=== PATIENT | female | born 1950 | race Caucasian/White ===

== ENCOUNTER 2016-12-31 15:40 | Emergency (ER) | payer MEDICARE ==
[~2016-12-31] VITALS: Ht 152.4 cm; Wt 95.3 kg
[2016-12-31] MEDS ORDERED: CAPT1TAB18 PO (15:51)
[2016-12-31] MEDS ORDERED: LOVA40TA PO (15:51)
[2016-12-31] MEDS ORDERED: B121000T PO (15:51)
[2016-12-31] MEDS ORDERED: SYNT75TA PO (15:51)
[2016-12-31] MEDS ORDERED: AMLO5TAB2 PO (15:51)
[2016-12-31] MEDS ORDERED: CHEW500C2 PO (15:51)
[2016-12-31] MEDS ORDERED: IBUPROFEN 800 MG TAB PO ONE (16:15)
[2016-12-31] MEDS ORDERED: amLODIPine 5 MG TAB PO ONE (16:30)
[2016-12-31] MEDS ORDERED: METOPROLOL TART 25 MG TABLET PO ONE (16:30)
[2016-12-31 16:51] VITALS: BP 162/98
--- NOTE | 2017-01-01 06:29 | REP ---
RIGHT LOWER EXTREMITY DUPLEX VEINS: HISTORY: Pain. There are no filling defects in the deep venous system. The deep venous system is patent. IMPRESSION: There is no deep venous thrombosis. Signed by Juan Jose Ibarra MD 01/01/2017 08:24 A
--- NOTE | 2017-01-04 10:11 | REP ---
RIGHT KNEE SERIES: Five views. HISTORY: Right lateral and posterior knee pain. FINDINGS: By views of the right knee demonstrate moderate three compartment osteoarthritis. There is medial and patellofemoral compartment narrowing and there is three compartment moderate osteophyte formation. There is diffuse osteopenia. No fracture is seen. No evidence of joint effusion noted. IMPRESSION: Moderate three compartment osteoarthritis. No acute bony abnormality. Signed by Fox Steiner MD 01/04/2017 10:19 A
== END 2016-12-31 17:54 | disposition home or self-care (01) ==
LOC: M ED 16:11
DX: M17.11 Unilateral primary osteoarthritis, right knee (principal)